=== PATIENT | female | born 1955 | race Caucasian/White ===

== ENCOUNTER → 2017-06-29 | Outpatient (CLI) | payer OTHER ==
--- NOTE | 2017-06-29 09:01 | RAD ---
Three-view left elbow radiographs 06/29/2017 Clinical history: Left elbow pain post fall one week ago. AP, lateral and oblique digital radiographs of the left elbow were obtained. Comparison study is dated 10/04/2012. No acute fracture or dislocation of the left elbow is seen. 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 There is no radiographic evidence of a joint effusion. 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 No acute osseous abnormality is seen.
== END | disposition home or self-care (01) ==
LOC: DXRADRC 08:40
PROVIDERS: ATTEND Physician Assistant
DX: M25.522 Pain in left elbow (principal); W19.XXXD Unspecified fall, subsequent encounter
CPT/HCPCS: 73080

== ENCOUNTER → 2017-08-11 | Outpatient (CLI) | payer OTHER ==
--- NOTE | 2017-08-11 10:29 | RAD ---
Indication pain. Fall 9 days previously. AP oblique and lateral views of the right knee were obtained. Bony mineralization appears normal. No acute finding is seen. There is some very slight medial joint space compartment narrowing. There is patellofemoral narrowing. IMPRESSION: No acute finding. Mild degenerative change
== END | disposition home or self-care (01) ==
LOC: DXRADRC 10:08
PROVIDERS: ATTEND Physician Assistant Medical
DX: M17.11 Unilateral primary osteoarthritis, right knee (principal); W19.XXXD Unspecified fall, subsequent encounter
CPT/HCPCS: 73562

== ENCOUNTER → 2018-04-11 | Outpatient (CLI) | payer OTHER ==
--- NOTE | 2018-04-11 10:10 | RAD ---
EXAM: Chest, 2 views. HISTORY: Cigarette smoking. COMPARISON: 09/23/2015 FINDINGS: Frontal and lateral views of the chest are obtained. There is diffuse increased interstitial opacity. There is no consolidation, pleural effusion or pneumothorax. The heart is normal in size. IMPRESSION: Diffuse increased interstitial opacity. This is new compared to the prior study and may be due to interstitial infiltrate or chronic interstitial changes. There is no consolidated pneumonia. Electronically signed by: Chyna Regan MD (04/11/2018 10:07 AM) [place] [id number]
== END | disposition home or self-care (01) ==
LOC: PMG 08:53
PROVIDERS: ATTEND Physician Assistant Medical
DX: R91.8 Other nonspecific abnormal finding of lung field (principal); Z87.891 Personal history of nicotine dependence
CPT/HCPCS: 71046

== ENCOUNTER → 2019-02-01 | Outpatient (CLI) | payer OTHER ==
--- NOTE | 2019-02-01 16:47 | RAD ---
EXAM: Chest, 2 views. HISTORY: Productive cough. COMPARISON: 04/11/2018 FINDINGS: 2 views of chest are obtained. There is no infiltrate, pleural effusion or pneumothorax. The heart is normal in size. IMPRESSION: No acute pulmonary finding. Electronically signed by: Chyna Regan MD (02/01/2019 4:45 PM) [id number]
== END | disposition home or self-care (01) ==
LOC: PMG 16:24
PROVIDERS: ATTEND Registered Nurse
DX: R05 Cough (principal)
CPT/HCPCS: 71046

== ENCOUNTER → 2019-11-09 | Outpatient (CLI) | payer MEDICARE, OTHER ==
--- NOTE | 2019-11-09 12:15 | RAD ---
EXAM: Chest, 2 views. HISTORY: Cough. COMPARISON: 02/01/2019 FINDINGS: 2 views of chest are obtained. There is no infiltrate, pleural effusion or pneumothorax. The heart is normal in size. IMPRESSION: No acute pulmonary finding. Electronically signed by: Chyna Regan MD (11/09/2019 12:12 PM) [place] [id number]
== END | disposition home or self-care (01) ==
LOC: PMG 10:43
PROVIDERS: ATTEND Registered Nurse
DX: R05 Cough (principal); R06.02 Shortness of breath
CPT/HCPCS: 71046

== ENCOUNTER 2020-12-31 09:03 | Emergency (ER) | payer OTHER, MEDICARE ==
[~2020-12-31] VITALS: Ht 160 cm; Wt 87.7 kg
--- NOTE | 2020-12-31 09:21 | PHYS DOC ---
General Adult EDM: Chief Complaint: MECHANICAL FALL HPI: HPI: Patient is a 65-year-old female who was brought here by EMS from home after she fell while walking downstairs, she missed about 4 steps, fell forward landed on her right knee. Patient denies any head or neck injury, no upper extremity injury, denies any pain in her back, denies any pain in her pelvic or hip area patient denies any pain in her ankle area. Patient complained of right knee pain. Review of Systems: Review of Systems: Constitutional: Denies fever or chills Eyes: Denies change in visual acuity HENT: Denies nasal congestion or sore throat Respiratory: Denies cough or shortness of breath Cardiovascular: Denies chest pain or edema GI: Denies abdominal pain, nausea, vomiting, bloody stools or diarrhea : Denies dysuria Musculoskeletal: Positive for right knee injury and pain. Integument: Denies rash Neurologic: Denies headache, focal weakness or sensory changes Endocrine: Denies polyuria or polydipsia Lymphatic: Denies swollen glands Psychiatric: Denies depression or anxiety Physical Exam: PE: Constitutional: Well developed, well nourished, no acute distress, non-toxic appearance. [] HENT: Normocephalic, atraumatic, bilateral external ears normal, oropharynx moist, no oral exudates, nose normal. [] Eyes: PERRLA, EOMI, conjunctiva normal, no discharge. [] Neck: Normal range of motion, no tenderness, supple, no stridor. [] Cardiovascular:Heart rate regular rhythm, no murmur [] Lungs & Thorax: Bilateral breath sounds clear to auscultation [] Abdomen: Bowel sounds normal, soft, no tenderness, no masses, no pulsatile masses. [] Skin: Warm, dry, no erythema, no rash. [] Back: No tenderness, no CVA tenderness. [] Extremities: The anterior part right knee is tender to palpation, superficial skin contusion, range of motion is intact, there is no tenderness to palpation on the pelvic area, no tenderness to palpation on the shoulder or wrist area, no tenderness to palpation on the ankle area Neurologic: Alert and oriented X 3, normal motor function, normal sensory function, no focal deficits noted. [] Psychologic: Affect normal, judgement normal, mood normal. [] EKG: EKG: [] Radiology/Procedures: Radiology/Procedures: [][address] [address] IMAGING REPORT Signed PATIENT: ERYN SILVA ACCOUNT: [id number] : 1955 LOCATION: ER AGE: 65 SEX: F EXAM STATUS: PRE ER ORD. PHYSICIAN: MOON MONTALVO DO REASON: right knee injured, fell PROCEDURE: KNEE RIGHT 3V EXAM: AP, oblique and lateral views of the right knee DATE: 12/31/2020 9:31 AM INDICATION: right knee injured, fell COMPARISON: 08/11/2017 FINDINGS: There is depression of the lateral tibial plateau consistent with impaction type fracture. There is extension into the tibial spine and lateral aspect of the medial femoral condyle. Lipohemarthrosis. Degenerative changes are seen of the right knee with mild medial compartment joint space narrowing and tricompartmental osteophytes. Decreased bone mineral density. IMPRESSION: 1. Impaction fracture lateral tibial plateau fracture with fracture plane extending into the lateral aspect medial femoral condyle. 2. Lipohemarthrosis. Electronically signed by: Barney Pérez MD (12/31/2020 9:37 AM) [id number] DICTATED AND SIGNED BY: BARNEY PÉREZ MD DATE: 12/31/20 0936 CC: MOON MONTALVO DO; [facility] [employer] ~MTH0 [address] [address] IMAGING REPORT Signed PATIENT: ERYN SILVA ACCOUNT: [id number] : 1955 LOCATION: ER AGE: 65 SEX: F EXAM STATUS: PRE ER ORD. PHYSICIAN: MOON MONTALVO DO REASON: FELL, RIGHT KNEE INJURED, FX PROCEDURE: CT LOWER EXTREMITY WO RIGHT EXAM: CT right knee without contrast DATE: 12/31/2020 10:00 AM COMPARISON: No prior INDICATION: Right knee pain, fall TECHNIQUE: CT of the right knee was performed without IV contrast. Axial, coronal and sagittal reformatted images were generated. PQRS compliance statement - One or more of the following individualized dose reduction techniques were utilized for this study: 1. Automated exposure control 2. Adjustment of the mA and/or kV according to patient size 3. Use of iterative reconstruction technique FINDINGS: There is a comminuted, impacted fracture at the posterior aspect of the lateral tibial plateau with depression measuring approximately 3 mm. Mild comminution of the tibial spine. Associated nondisplaced fracture also extends into the lateral aspect of the medial tibial plateau with extension in the coronal plane to the medial aspect of the medial tibial plateau. No associated medial compartment articular surface irregularity or offset. Decreased bone mineral density. There is moderate right lipohemarthrosis. Soft tissue swelling is also seen predominantly posterolaterally. Neutral patellar tracking. Right knee joint osteoarthritis with tricompartmental osteophytes and medial compartment joint space narrowing. IMPRESSION: 1. Impacted fracture of the lateral tibial plateau predominantly posteriorly involves approximately 75 percent of the tibial plateau articular surface. 2. Nondisplaced fracture planes extend into the tibial spine and medial tibial plateau without significant articular surface irregularity or offset. 3. Moderate lipohemarthrosis. 4. Background of right knee joint osteoarthritis. Electronically signed by: Barney Pérez MD (12/31/2020 10:30 AM) [id number] DICTATED AND SIGNED BY: BARNEY PÉREZ MD DATE: 12/31/20 1027 CC: MOON MONTALVO DO; [employer] SE[employer]ETARY-C ~MTH0 0 Heart Score: Risk Factors: Risk Factors: DM, Current or recent (<one month) smoker, HTN, HLP, family history of CAD, obesity. Risk Scores: Score 0 - 3: 2.5% MACE over next 6 weeks - Discharge Home Score 4 - 6: 20.3% MACE over next 6 weeks - Admit for Clinical Observation Score 7 - 10: 72.7% MACE over next 6 weeks - Early Invasive Strategies Course & Med Decision Making: Course & Med Decision Making Pertinent Labs and Imaging studies reviewed. (See chart for details) Patient is a 65-year-old female who sustained a traumatic right tibial plateau fracture, patient will need to be evaluated by orthopedic surgery, patient would like to be transferred to [facility] where her orthopedic surgeon practice. Discussed with orthopedic surgeon Dr. Pickard at [facility], agreed to accept the patient over there , Dr. Jones accepted the patient for transfer there. A knee immobilizer was applied to right knee. Yecenia Disclaimer: Yecenia Disclaimer: This electronic medical record was generated, in whole or in part, using a voice recognition dictation system. Departure Departure: Impression: Primary Impression: Fracture of right tibial plateau Disposition: 02 DC/TRF OTHER SHORT TERM HOS (Transfer to [facility], accepted by DR. Jones. ) Condition: STABLE Referrals: ERNA TENA [employer]INGUAL SECRETARY-C (PCP) MOON MONTALVO DO Dec 31, 2020 09:21
[2020-12-31] MEDS ORDERED: METO25TA2 PO (09:30)
[2020-12-31] MEDS ORDERED: APIX5TAB3 PO (09:30)
[2020-12-31] MEDS ORDERED: ACETAMINOPHEN 500 MG TABLET PO ONE ×2 (09:38→09:45)
--- NOTE | 2020-12-31 09:39 | RAD ---
EXAM: AP, oblique and lateral views of the right knee DATE: 12/31/2020 9:31 AM INDICATION: right knee injured, fell COMPARISON: 08/11/2017 FINDINGS: There is depression of the lateral tibial plateau consistent with impaction type fracture. There is e xtension into the tibial spine and lateral aspect of the medial femoral condyle. Lipohemarthrosis. De generative changes are seen of the right knee with mild medial compartment joint space narrowing and tricompartmental osteophytes. Decreased bone mineral density. IMPRESSION: 1. Impaction fracture lateral tibial plateau fracture with fracture plane extending into the lateral aspect medial femoral condyle. 2. Lipohemarthrosis. Electronically signed by: Barney Bacon MD (12/31/2020 9:37 AM) [id number]
--- NOTE | 2020-12-31 10:33 | RAD ---
EXAM: CT right knee without contrast DATE: 12/31/2020 10:00 AM COMPARISON: No prior INDICATION: Right knee pain, fall TECHNIQUE: CT of the right knee was performed without IV contrast. Axial, coronal and sagittal reform atted images were generated. PQRS compliance statement - One or more of the following individualized dose reduction techniques wer e utilized for this study: 1. Automated exposure control 2. Adjustment of the mA and/or kV according to patient size 3. Use of iterative reconstruction technique FINDINGS: There is a comminuted, impacted fracture at the posterior aspect of the lateral tibial plateau with d epression measuring approximately 3 mm. Mild comminution of the tibial spine. Associated nondisplaced fracture also extends into the lateral aspect of the medial tibial plateau with extension in the cor onal plane to the medial aspect of the medial tibial plateau. No associated medial compartment articu lar surface irregularity or offset. Decreased bone mineral density. There is moderate right lipohemarthrosis. Soft tissue swelling is also seen predominantly posterolate rally. Neutral patellar tracking. Right knee joint osteoarthritis with tricompartmental osteophytes and medial compartment joint space narrowing. IMPRESSION: 1. Impacted fracture of the lateral tibial plateau predominantly posteriorly involves approximately 75 percent of the tibial plateau articular surface. 2. Nondisplaced fracture planes extend into the tibial spine and medial tibial plateau without signi ficant articular surface irregularity or offset. 3. Moderate lipohemarthrosis. 4. Background of right knee joint osteoarthritis. Electronically signed by: Barney Bacon MD (12/31/2020 10:30 AM) [id number]
[2020-12-31 13:28] VITALS: BP 154/82
== END 2020-12-31 13:30 | disposition short-term general hospital (02) ==
LOC: ER 09:03
DX: S82.141A Displaced bicondylar fracture of right tibia, initial encounter for closed fracture (principal); W10.8XXA Fall (on) (from) other stairs and steps, initial encounter; Y93.01 Activity, walking, marching and hiking; Y92.89 Other specified places as the place of occurrence of the external cause; Y99.8 Other external cause status
CPT/HCPCS: 29505; 73562; 73700; 99284-25

== ENCOUNTER → 2021-03-12 | Outpatient (CLI) | payer MEDICARE ==
[~2021-03-12] MED LIST: APIX5TAB3 PO; METO25TA2 PO
--- NOTE | 2021-03-12 10:05 | RAD ---
EXAM: Chest and left ribs, 4 views. HISTORY: Pain. Fall. COMPARISON: 11/09/2019 FINDINGS: A frontal view of the chest and 3 views of the left ribs are obtained. There is no infiltra te, pleural effusion or pneumothorax. There is suspected linear atelectasis within the lingula. There is a cardiac pacemaker in expected position. There are nondisplaced to minimally displaced posterior lateral left fourth, fifth, sixth, seventh and suspected ninth rib fractures. IMPRESSION: 1. No acute pulmonary finding. 2. Nondisplaced to minimally displaced posterior lateral left fourth, fifth, sixth, seventh and possi helga ninth rib fractures, some of which are of uncertain chronicity. Correlate for point tenderness in these locations. Electronically signed by: Chyna Regan MD (03/12/2021 10:02 AM) [id number]
== END ==
LOC: RAD 09:03
PROVIDERS: ATTEND Physician Assistant Medical
DX: R07.81 Pleurodynia (principal)
CPT/HCPCS: 71101